=== PATIENT | male | born 1975 | race Caucasian/White ===

== ENCOUNTER 2016-06-12 01:50 | Emergency (ER) | payer SELFPAY ==
[2016-06-12 02:09] VITALS: BMI 29.6
[2016-06-12 02:36] LABS: AUTOMATED BASOPHIL 0.3 % (0-2); AUTOMATED EOSINOPHIL 1.9 % (0-5); AUTOMATED MONOCYTE 7.3 % (3-10); AUTOMATED NEUTROPHIL 68.5 % (45-76)
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
[2016-06-12 02:48] LABS: BLOOD UREA NITROGEN 17 MG/DL (9-20); CALCIUM 9.2 MG/DL (8.4-10.2); CALCULATED OSMOLALITY 271 MOs/Kg (270-290); CHLORIDE 104 mEq/L (98-107); ETOH-MGDL < 10 mg/dL; GLUCOSE 106 MG/DL (70-99); SODIUM LEVEL 140 mEq/L (137-146); TOTAL PROTEIN 8.2 G/DL (6.3-8.2)
[2016-06-12 03:51] LABS: ALL NEG? NO
[2016-06-12 03:59] LABS: LEUKOCYTES/URINE NEG (NEGATIVE); MDMA* *POSITIVE* (NEGATIVE); METHAMPHETAMINES *POSITIVE* (NEGATIVE); NITRITE/URINE NEG (NEGATIVE); OXYCODONE NEG (NEGATIVE); URINE OCCULT BLOOD NEG (NEG/TRACE); WBC/URINE 0-2 (0-2)
[2016-06-12 06:28] VITALS: TEMP 97.6
[2016-06-12] MEDS ORDERED: MAGNESIUM HYDROXIDE 30 ML BOTTLE PO PRN (07:23)
[2016-06-12] MEDS ORDERED: GUAIFENESIN 200 MG/10 ML UDC PO PRN (07:23)
[2016-06-12] MEDS ORDERED: TEMAZEPAM 15 MG CAP PO PRN (07:23)
[2016-06-12] MEDS ORDERED: Docusate Sodium 100 MG CAP PO PRN (07:23)
[2016-06-12] MEDS ORDERED: ACETAMINOPHEN 325 MG/TAB TABLET PO PRN (07:23)
[2016-06-12] MEDS ORDERED: LORAZEPAM 1 MG TAB PO PRN (07:23)
[2016-06-12] MEDS ORDERED: ONDANSETRON HCL 4 MG ODT TAB PO PRN (07:23)
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
[2016-06-12 11:27] VITALS: BP 114/64; PULSE 81
== END 2016-06-12 11:34 | disposition home or self-care (01) ==
LOC: ED 01:50
DX: F32.9 Major depressive disorder, single episode, unspecified (principal); F19.10 Other psychoactive substance abuse, uncomplicated
CPT/HCPCS: 36415; 80053; 80307; 80320; 81001; 85025; 86592; 93005; 99284

== ENCOUNTER 2016-06-13 15:21 | Emergency (ER) | payer SELFPAY ==
[2016-06-13 15:25] VITALS: TEMP 98.7; BMI 29.4
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
[2016-06-13 17:21] VITALS: BP 136/78; PULSE 87
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
== END 2016-06-13 17:35 | disposition home or self-care (01) ==
LOC: EDMC 15:21
DX: S80.02XA Contusion of left knee, initial encounter (principal); V09.20XA Pedestrian injured in traffic accident involving unspecified motor vehicles, initial encounter
CPT/HCPCS: 99283